=== PATIENT | female | born 1960 | race Caucasian/White ===

== ENCOUNTER 2025-02-27 18:49 | Emergency (ER) | payer BC, SELFPAY ==
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
[2025-02-27 23:00] VITALS: BP 144/70
[2025-02-27] MEDS: KEFLEX 500 MG PO (23:14)
== END 2025-02-27 23:21 | disposition home or self-care (01) ==
LOC: EMR 18:49
PROVIDERS: EMERGENCY PHYSICIAN Emergency Medicine
DX: L03.116 Cellulitis of left lower limb (principal); R22.42 Localized swelling, mass and lump, left lower limb; F17.200 Nicotine dependence, unspecified, uncomplicated; Z90.49 Acquired absence of other specified parts of digestive tract; Z91.81 History of falling
CPT/HCPCS: 99284; 93971